=== PATIENT | male | born 1975 | race Two or more races ===

== ENCOUNTER 2020-01-18 01:16 | Emergency (ER) | payer SELFPAY ==
[~2020-01-18] VITALS: Ht 185.4 cm; Wt 94.4 kg
[2020-01-18] MEDS ORDERED: cefTRIAXone 1GM/50ML D5W 50 ML IV ONE (02:00)
[2020-01-18] MEDS ORDERED: ONDANSETRON HCL 4 MG/2 ML VIAL IV ONE (02:15)
[2020-01-18] MEDS ORDERED: MORPHINE SULF INJ 2 MG/ML SYRINGE 1ML IV ONE ×2 (02:15→02:45)
[2020-01-18] MEDS ORDERED: SODIUM CHLORIDE 0.9% 1,000 ML IV ONE (02:15)
[2020-01-18] MEDS ORDERED: TETANUS-DIPTH-ACEL PERTUSSIS 0.5ML SYR Tdap IM ONE (02:45)
[2020-01-18] MEDS ORDERED: LIDOCAINE W/ EPINEPHRINE 1% 20ML VIAL ID ONE (03:15)
[2020-01-18 06:00] VITALS: BP 108/60
== END 2020-01-18 05:52 | disposition home or self-care (01) ==
LOC: ER 01:18
DX: S01.511A Laceration without foreign body of lip, initial encounter (principal); Y04.0XXA Assault by unarmed brawl or fight, initial encounter; Y93.89 Activity, other specified; Y92.89 Other specified places as the place of occurrence of the external cause; Y99.0 Civilian activity done for income or pay
CPT/HCPCS: 40650; 70450; 70486; 90471; 90715; 96365; 96375; 96376; 99285; J0696; J2270; J2405

== ENCOUNTER 2022-10-10 23:50 | Emergency (ER) | payer MEDICAID, OTHER ==
[~2022-10-10] VITALS: Ht 182.9 cm; Wt 115.0 kg
[2022-10-11] MEDS ORDERED: ACETAMINOPHEN 500 MG TAB PO ONE (00:30)
[2022-10-11 00:55] VITALS: BP 148/87
== END 2022-10-11 00:55 ==
LOC: ER 23:50
DX: S01.112A Laceration without foreign body of left eyelid and periocular area, initial encounter (principal); X58.XXXA Exposure to other specified factors, initial encounter; Y93.89 Activity, other specified; Y92.89 Other specified places as the place of occurrence of the external cause; Y99.8 Other external cause status